=== PATIENT | female | born 1960 | race Caucasian/White ===

== ENCOUNTER 2025-02-06 03:49 | Emergency (ER) | payer SELFPAY ==
[~2025-02-06] VITALS: Ht 160 cm; Wt 74.0 kg
[2025-02-06 03:54] VITALS: O2SAT 96
[2025-02-06] MEDS: ACETAMINOPHEN 325MG TABLET PO ONE (05:54)
[2025-02-06] MEDS ORDERED: TOPUD PO (06:40)
[2025-02-06 07:08] VITALS: BP 136/64; PULSE 68; RESP 14; TEMP 36.7; O2SAT 99
== END 2025-02-06 07:15 | disposition home or self-care (01) ==
LOC: ER 03:49
DX: S40.011A Contusion of right shoulder, initial encounter (principal); S80.01XA Contusion of right knee, initial encounter; W19.XXXA Unspecified fall, initial encounter; Y93.89 Activity, other specified; Y92.89 Other specified places as the place of occurrence of the external cause; Y99.8 Other external cause status
CPT/HCPCS: 73030; 73060; 73562; 99284